=== PATIENT | female | born 1955 | race Hispanic/Latino ===

== ENCOUNTER 2018-04-14 16:15 | Emergency (ER) | payer OTHER ==
[~2018-04-14] VITALS: Ht 167.6 cm; Wt 103.4 kg
--- OUTSIDE RECORDS SUMMARY | 2018-04-14 16:18 | XMS REPORT ---
Author Author [facility] Address Unknown Phone Unavailable Care Team Providers Care Resp Therapist Name Role Phone AYESHA MARIE Unavailable Unavailable Problems This patient has no known problems. Allergies, Adverse Reactions, Alerts This patient has no known allergies or adverse reactions. Medications This patient has no known medications. Results Test Description Test Time Test Comments Text Results Atomic Results Result Comments CT ABDOMEN WOW [place] [id number] Patient Name: CALVIN LILLY MR #: [id number] : 1955 Age/Sex: 61/F Req #: [id number] Adm Physician: Ordered by: AYESHA MARIE MD Report #: [id number] Location: CT Room/Bed: Procedure: [id number] CT/CT ABDOMEN WOW Exam Date: 11/29/16 Exam Time: 1805 REPORT STATUS: Signed PROCEDURE: CT ABDOMEN WITH AND WITHOUT CONTRAST TECHNIQUE: The abdomen was scanned utilizing a multidetector helical scanner from the diaphragm to the iliac crest before and after the IV administration of 100 cc of Isovue 370 and the oral administration of water. Coronal and sagittal multiplanar reformations were obtained. COMPARISON: None available. Report of CT abdomen with contrast performed at outside institution 02/15/2016 was reviewed. INDICATIONS: LIVER MASS, KIDNEY BENIGN TUMOR FINDINGS: LOWER THORAX: Distal portion of pacemaker wire is noted in the right atrium and right ventricle. Lung bases are grossly clear. HEPATOBILIARY: Normal hepatic size and contour. There is likely borderline to mild fatty infiltration. 3.3 x 3.0 x 3.2 cm to relatively well-circumscribed, slightly lobulated hypodense lesion with imperceptible wall in hepatic segment IVB, adjacent to the abimbola hepatis (series 3, image 122). This lesion measures approximately 33 HU on precontrast exam, and shows no significant enhancement on postcontrast images (34, 39 and 32 HU on arterial, venous and delayed phases, respectively). No other focal hepatic lesions. No biliary ductal dilation. Gallbladder is decompressed, but grossly unremarkable. SPLEEN: No splenomegaly. PANCREAS: No focal masses or ductal dilatation. ADRENALS: No adrenal nodules. KIDNEYS: Symmetrical renal enhancement. Bilateral extrarenal pelves. No hydronephrosis or hydroureter or evidence of obstruction. 0.8 x 1.0 x 0.7 cm hyperdense lesion in the lateral inferior pole of the right kidney (56 HU),, which shows enhancement on postcontrast images (90, 83, and 56 HU, on arterial, venous and delayed phases respectively). 3-4 mm hypodense lesions in the inferior pole of the right kidney (series 5, images 38 and 43) which are too small to characterize. 7- 8mm hypodense lesion in the superior pole of the left kidney (series 5, image 23) which is too small to characterize. No solid enhancing masses. No stones PERITONEUM / RETROPERITONEUM: No free air or fluid. LYMPH NODES: No lymphadenopathy. VESSELS: Atherosclerotic calcification of the abdominal aorta GI TRACT: Visualized bowel shows no dilation or obstruction. Scattered diverticula in the descending colon, without diverticulitis. BONES AND SOFT TISSUES: No acute bony abnormalities. Mild degenerative changes in the lumbar spine. IMPRESSION: 1. 3.3 cm, slightly lobulated lesion in hepatic segment IVB, likely representing a mildly complex/proteinaceous cyst. No post contrast-enhancement is identified. 2. 1.0 cm hyperdense lesion in the lateral inferior pole of the right kidney, likely secondary to internal proteinaceous or hemorrhagic component, which remains indeterminate. Given its small size and mostly intracortical location, pseudo-enhancement is a consideration, however, if there is true enhancement, a hemorrhagic RCC is a diagnostic possibility. This may be further assessed with contrast-enhanced abdominal MRI with renal mass protocol. 3. Borderline to mild hepatic steatosis. Jose Pedersen M.D. Dictated by: Jose Pedersen M.D. on 11/29/2016 at 18:56 Electronically approved by: Jose Pedersen M.D. on 11/29/2016 at 18:56 Dictated By: JOSE PEDERSEN MD 55 Transcribed By: ADIEL on 11/29/161855 COPY TO: AYESHA MARIE MD
--- OUTSIDE RECORDS SUMMARY | 2018-04-14 16:18 | XMS REPORT | Continuity of Care Document ---
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 08/25/2016 [facility] SOBOE (<span ID="[id number]">Confirmed</span>) Active Problem 08/25/2016 [facility] Acid reflux Active Problem 08/25/2016 [facility] Hypertension Active Problem 08/25/2016 [facility] Poor peripheral circulation<sup>1</sup> Active Problem 08/25/2016 lower extremitites [facility] Sleep apnea Active Problem 08/25/2016 [facility] Medications Medication Details Route Status Patient Instructions Ordering Provider Order Date Source Minocycline 100 mg, 2 cap, Route: PO, Drug form: CAP, Q12H, Dosing Weight 100.455, kg, Start date: 08/22/16 9:00:00 CDT, Duration: 7 day, Stop date: 08/28/16 21:00:00 CDTNotes: (Same as:Minocin) No milk/antacids/iron. Inactive 08/22/2016 [facility] Coenzyme Q10 100 mg, Route: PO, Drug form: CAP, Daily, Dosing Weight 100.455, kg, Start date: 08/22/16 9:00:00 CDT, Duration: 30 day, Stop date: 09/20/16 9:00:00 CDT Inactive 08/22/2016 [facility] Chlorthalidone 50 MG Oral Tablet 50 mg, 2 tab, Route: PO, Drug form: TAB, Daily, Dosing Weight 100.455, kg, Start date: 08/22/16 9:00:00 CDT, Duration: 30 day, Stop date: 09/20/16 9:00:00 CDTNotes: Non-Formulary Drug (Same As: [place]) Inactive 08/22/2016 [facility] RN: Pls bring pt own coenzyme to pharm to get labeled. RN: Pls bring pt own coenzyme to pharm to get labeled., Reminder., Drug form: MISC, Route: MISCYRIS, 08/22/16 0:00:00 CDT, Duration: 30 day, Stop date: 09/20/16 16:00:00 CDT Inactive 08/22/2016 [facility] rosuvastatin 10 mg, 2 tab, Route: PO, Drug form: TAB, Bedtime, Dosing Weight 100.455, kg, Start date: 08/21/16 21:00:00 CDT, Duration: 30 day, Stop date: 09/19/16 21:00:00 CDTNotes: Same as Crestor No Longer Active 08/22/2016 [facility] Furosemide 40 MG Oral Tablet [Lasix] 40 mg, 1 tab, Route: PO, Drug form: TAB, qWeek, Dosing Weight 100.455, kg, Start date: 08/21/16 21:00:00 CDT, Duration: 30 day, Stop date: 09/18/16 9:00:00 CDTNotes: (Same as: Lasix) May cause GI upset. Give with food or milk. No Longer Active 08/22/2016 [facility] Amlodipine 2.5 mg, 1 tab, Route: PO, Drug form: TAB, Bedtime, Dosing Weight 100.455, kg, Start date: 08/21/16 21:00:00 CDT, Duration: 30 day, Stop date: 09/19/16 21:00:00 CDTNotes: (Same as: Norvasc) No Longer Active 08/22/2016 [facility] famotidine 20 mg, 1 tab, Route: PO, Drug form: TAB, Q12H, PRN GI Upset, Start date: 08/21/16 20:57:00 CDT, Duration: 30 day, Stop date: 09/20/16 20:56:00 CDTNotes: (Same as: Pepcid) No Longer Active 08/22/2016 [facility] Ranitidine 150 MG Oral Tablet [Zantac] 150 mg, 1 tab, Route: PO, Drug form: TAB, PRN, Dosing Weight 100.455, kg, PRN GI Upset, Start date: 08/21/16 20:29:00 CDT, Duration: 30 day, Stop date: 09/20/16 20:28:00 CDT Inactive 08/22/2016 [facility] acetaminophen-codeine #3 1 tab, Route: PO, Drug Form: TAB, Dosing Weight 100.455, kg, Q4H, PRN Pain Score 4-6, Start date: 08/21/16 10:46:00 CDT, Duration: 30 day, Stop date: 09/20/16 10:45:00 CDTNotes: Do not exceed 4gm/day of acetaminophen. (Same as: Tylenol with Codeine # 3) No Longer Active 08/21/2016 [facility] Chlorthalidone 50 MG Oral Tablet 50 mg=1 tab, PO, Daily, # 30 tab, 0 Refill(s) Active 08/21/2016 [facility] Furosemide 40 MG Oral Tablet [Lasix] 40 mg=1 tab, PO, qWeek, 0 Refill(s) Active 08/21/2016 [facility] Coenzyme Q10 100 mg, Route: PO, Drug form: CAP, Daily, Dosing Weight 102.273, kg, Start date: 08/06/16 9:00:00 CDT, Duration: 30 day, Stop date: 09/04/16 9:00:00 CDT Inactive 08/06/2016 [facility] aspirin 81 mg tablet, enteric coated 81 mg, 1 tab, Route: PO, Drug form: ECTAB, Daily, Dosing Weight 102.273, kg, Start date: 08/06/16 9:00:00 CDT, Duration: 30 day, Stop date: 09/04/16 9:00:00 CDT Inactive 08/06/2016 [facility] rosuvastatin 10 mg, Route: PO, Drug form: TAB, Bedtime, Dosing Weight 102.273, kg, Start date: 08/05/16 21:00:00 CDT, Duration: 30 day, Stop date: 09/03/16 21:00:00 CDT No Longer Active 08/06/2016 [facility] Atenolol 50 MG / Chlorthalidone 25 MG Oral Tablet 1 tab, Route: PO, Drug Form: TAB, Dosing Weight 102.273, kg, Bedtime, Start date: 08/05/16 21:00:00 CDT, Duration: 30 day, Stop date: 09/03/16 21:00:00 CDT No Longer Active 08/06/2016 [facility] Amlodipine 2.5 mg, Route: PO, Drug form: TAB, Bedtime, Dosing Weight 102.273, kg, Start date: 08/05/16 21:00:00 CDT, Duration: 30 day, Stop date: 09/03/16 21:00:00 CDT No Longer Active 08/06/2016 [facility] Sodium Chloride 0.154 MEQ/ML Injectable Solution 750 mL, Rate: 200 ml/hr, Infuse over: 3.8 hr, Route: IV, Dosing Weight 102.273 kg, Total Volume: 750, Start date: 08/05/16 9:17:00 CDT, Duration: 10 hr, Stop date: 08/05/16 19:16:00 CDT No Longer Active 08/05/2016 [facility] Ranitidine 150 MG Oral Tablet [Zantac] 150 mg, 1 tab, Route: PO, Drug form: TAB, PRN, Dosing Weight 102.273, kg, PRN Heartburn, Start date: 08/05/16 9:14:00 CDT, Duration: 30 day, Stop date: 09/04/16 9:13:00 CDT No Longer Active 08/05/2016 [facility] amLODIPine 2.5 mg oral tablet 2.5 mg=1 tab, PO, Bedtime, # 90 tab, 0 Refill(s) Active 08/02/2016 [facility] Ranitidine 150 MG Oral Tablet [Zantac] 150 mg=1 tab, PO, PRN, 0 Refill(s) Active 08/02/2016 [facility] Coenzyme Q10 100 mg oral capsule 100 mg=1 cap, PO, Daily, # 30 cap, 0 Refill(s) Active 08/02/2016 [facility] Atenolol 50 MG / Chlorthalidone 25 MG Oral Tablet 1 tab, PO, Bedtime, # 30 tab, 0 Refill(s) Active 08/02/2016 [facility] aspirin 81 mg tablet, enteric coated 81 mg=1 tab, PO, Daily, # 90 tab, 3 Refill(s) Active 08/02/2016 [facility] rosuvastatin 10 mg oral tablet 10 mg=1 tab, PO, Bedtime, # 30 tab, 0 Refill(s) Active 08/02/2016 [facility] Allergies, Adverse Reactions, Alerts Substance Category Reaction Severity Reaction type Status Date Reported Comments Source Immunizations Immunization Date Given Site Status Last Updated Comments Source Results Order Name Results Value Reference Range Date Interpretation Comments Source Chest 1 v for Placement DX Chest 1 v for Placement DX CHEST, ONE VIEW HISTORY: Pacemaker placement. COMPARISON: 09/22/2010. FINDINGS: Since the prior exam, a dual-lead left chest wall transvenous cardiac pacemaker has been placed with leads terminating in the right atrium and right ventricle. No pneumothorax is seen. Lungs are clear. No pleural effusion is evident. Heart size within normal limits. Osseous structures unremarkable. SL: [id number] 08/21/2016 - - Read by: Darrel Pettit MD Dictated Date/time: 08/21/16 14:04 Electronically Signed by: Darrel Pettit MD 08/21/16 14:05 FINAL REPORT [facility] CHEM PANEL eGFR 76 mL/min/1.73m2 08/20/2016 Result Comment: The eGFR is calculated using the CKD-EPI formula. In most young, healthy individuals the eGFR will be >90 mL/min/1.73m2. The eGFR declines with age. An eGFR of 60-89 may be normal in some populations, particularly the elderly, for whom the CKD-EPI formula has not been extensively validated. Use of the eGFR is not recommended in the following populations: Individuals with unstable creatinine concentrations, including patients and those with serious co-morbid conditions. Patients with extremes in muscle mass or diet. The data above are obtained from the National Kidney Disease Education Program (NKDEP) which additionally recommends that when the eGFR is used in patients with extremes of body mass index for purposes of drug dosing, the eGFR should be multiplied by the estimated BMI. [facility] CHEM PANEL Chloride Lvl 108 meq/L 95 - 109 08/20/2016 [facility] CHEM PANEL Calcium Lvl 9.2 mg/dL 8.5 - 10.5 08/20/2016 [facility] CHEM PANEL CO2 28 meq/L 24 - 32 08/20/2016 [facility] CHEM PANEL Sodium Lvl 143 meq/L 135 - 145 08/20/2016 [facility] CHEM PANEL Potassium Lvl 4.2 meq/L 3.5 - 5.1 08/20/2016 [facility] CHEM PANEL BUN 12 mg/dL 7 - 22 08/20/2016 [facility] CHEM PANEL Creatinine Lvl 0.84 mg/dL 0.50 - 1.40 08/20/2016 [facility] CHEM PANEL Glucose Lvl 84 mg/dL 70 - 99 08/20/2016 [facility] CHEM PANEL AGAP 11.2 meq/L 10.0 - 20.0 08/20/2016 [facility] HEMATOLOGY Hct 36.7 % 36.0 - 48.0 08/20/2016 [facility] [place] MCV 88.3 fL 80.0 - 98.0 08/20/2016 [facility] [place] MCH 30.7 pg 27.0 - 31.0 08/20/2016 [facility] [place] MCHC 34.7 g/dL 32.0 - 36.0 08/20/2016 [facility] [place] RDW 13.5 % 11.5 - 14.5 08/20/2016 [facility] [place] Platelet 230 K/CMM 133 - 450 08/20/2016 [facility] [place] RBC 4.15 M/CMM 4.20 - 5.40 08/20/2016 [facility] [place] Hgb 12.7 g/dL 12.0 - 16.0 08/20/2016 [facility] [place] WBC 8.0 K/CMM 3.7 - 10.4 08/20/2016 [facility] [place] MPV 7.6 fL 7.4 - 10.4 08/20/2016 [facility] [place] PT 14.2 s 12.0 - 14.7 08/20/2016 [facility] [place] PTT 31.0 s 22.9 - 35.8 08/20/2016 [facility] [place] INR 1.08 0.85 - 1.17 08/20/2016 [facility] [place] Basophils 0.8 % 0.0 - 1.0 08/20/2016 [facility] [place] Eosinophils 1.5 % 0.0 - 4.0 08/20/2016 [facility] [place] Monocytes # 0.4 K/CMM 0.0 - 0.8 08/20/2016 [facility] [place] Segs-Bands # 4.9 K/CMM 1.5 - 8.1 08/20/2016 [facility] [place] Monocytes 5.4 % 2.0 - 12.0 08/20/2016 [facility] [place] Lymphocytes 30.6 % 20.0 - 40.0 08/20/2016 [facility] [place] Lymphocytes # 2.4 K/CMM 1.0 - 5.5 08/20/2016 [facility] [place] Basophils # 0.1 K/CMM 0.0 - 0.2 08/20/2016 [facility] HEMATOLOGY Eosinophils # 0.1 K/CMM 0.0 - 0.5 08/20/2016 [facility] HEMATOLOGY Segs 61.7 % 45.0 - 75.0 08/20/2016 [facility] CHEM PANEL A/G Ratio 1.0 0.7 - 1.6 08/02/2016 [facility] CHEM PANEL B/C Ratio 17 6 - 25 08/02/2016 [facility] CHEM PANEL Globulin 3.7 g/dL 2.7 - 4.2 08/02/2016 [facility] CHEM PANEL AGAP 10.3 meq/L 10.0 - 20.0 08/02/2016 [facility] CHEM PANEL Sodium Lvl 142 meq/L 135 - 145 08/02/2016 [facility] CHEM PANEL Potassium Lvl 3.3 meq/L 3.5 - 5.1 08/02/2016 [facility] CHEM PANEL Chloride Lvl 102 meq/L 95 - 109 08/02/2016 [facility] CHEM PANEL BUN 15 mg/dL 7 - 22 08/02/2016 [facility] CHEM PANEL Total Protein 7.5 g/dL 6.4 - 8.4 08/02/2016 [facility] CHEM PANEL Albumin Lvl 3.8 g/dL 3.5 - 5.0 08/02/2016 [facility] CHEM PANEL CO2 33 meq/L 24 - 32 08/02/2016 [facility] CHEM PANEL Creatinine Lvl 0.87 mg/dL 0.50 - 1.40 08/02/2016 [facility] CHEM PANEL Alk Phos 50 unit/L 39 - 136 08/02/2016 [facility] CHEM PANEL AST 18 unit/L 0 - 37 08/02/2016 [facility] CHEM PANEL Bili Total 0.7 mg/dL 0.2 - 1.3 08/02/2016 [facility] CHEM PANEL ALT 27 unit/L 0 - 65 08/02/2016 [facility] CHEM PANEL Calcium Lvl 8.9 mg/dL 8.5 - 10.5 08/02/2016 [facility] CHEM PANEL eGFR 73 mL/min/1.73m2 08/02/2016 Result Comment: The eGFR is calculated using the CKD-EPI formula. In most young, healthy individuals the eGFR will be >90 mL/min/1.73m2. The eGFR declines with age. An eGFR of 60-89 may be normal in some populations, particularly the elderly, for whom the CKD-EPI formula has not been extensively validated. Use of the eGFR is not recommended in the following populations: Individuals with unstable creatinine concentrations, including patients and those with serious co-morbid conditions. Patients with extremes in muscle mass or diet. The data above are obtained from the National Kidney Disease Education Program (NKDEP) which additionally recommends that when the eGFR is used in patients with extremes of body mass index for purposes of drug dosing, the eGFR should be multiplied by the estimated BMI. [facility] CHEM PANEL Glucose Lvl 88 mg/dL 70 - 99 08/02/2016 [facility] HEMATOLOGY Eosinophils 1.7 % 0.0 - 4.0 08/02/2016 [facility] HEMATOLOGY Monocytes 7.0 % 2.0 - 12.0 08/02/2016 [facility] [place] Basophils # 0.1 K/CMM 0.0 - 0.2 08/02/2016 [facility] [place] Lymphocytes 32.3 % 20.0 - 40.0 08/02/2016 [facility] HEMATOLOGY Segs 58.1 % 45.0 - 75.0 08/02/2016 [facility] [place] Basophils 0.9 % 0.0 - 1.0 08/02/2016 [facility] [place] Eosinophils # 0.1 K/CMM 0.0 - 0.5 08/02/2016 [facility] [place] Monocytes # 0.4 K/CMM 0.0 - 0.8 08/02/2016 [facility] [place] Lymphocytes # 2.1 K/CMM 1.0 - 5.5 08/02/2016 [facility] [place] Segs-Bands # 3.7 K/CMM 1.5 - 8.1 08/02/2016 [facility] [place] PTT 30.8 s 22.9 - 35.8 08/02/2016 [facility] [place] PT 13.8 s 12.0 - 14.7 08/02/2016 [facility] [place] INR 1.04 0.85 - 1.17 08/02/2016 [facility] [place] RBC 4.24 M/CMM 4.20 - 5.40 08/02/2016 [facility] [place] WBC 6.4 K/CMM 3.7 - 10.4 08/02/2016 [facility] [place] Platelet 229 K/CMM 133 - 450 08/02/2016 [facility] [place] RDW 13.1 % 11.5 - 14.5 08/02/2016 [facility] [place] MCH 30.8 pg 27.0 - 31.0 08/02/2016 [facility] [place] MCV 87.0 fL 80.0 - 98.0 08/02/2016 [facility] [place] MPV 8.1 fL 7.4 - 10.4 08/02/2016 [facility] [place] Hct 36.9 % 36.0 - 48.0 08/02/2016 [facility] [place] MCHC 35.4 g/dL 32.0 - 36.0 08/02/2016 [facility] [place] Hgb 13.1 g/dL 12.0 - 16.0 08/02/2016 [facility] CHD Risk 4.72 3.90 - 5.80 08/02/2016 [facility] LIPIDS LDL (Calculated) 129 mg/dL <=99 mg/dL 08/02/2016 [facility] LIPIDS VLDL 31 08/02/2016 [facility] LIPIDS Trig 154 mg/dL <=149 mg/dL 08/02/2016 [facility] LIPIDS Chol 203 mg/dL <=199 mg/dL 08/02/2016 [facility] HDL 43 mg/dL >=61 mg/dL 08/02/2016 [facility] Abdomen complete US Abdomen complete US Clinical Indication: upper abdominal pain; Comparison: None TECHNIQUE: Grayscale and limited color sonographic evaluation of the abdomen was performed with standard technique. FINDINGS: LIVER: The visualized liver shows normal contour, size, and morphology with normal parenchymal echo texture. A 3.2 x 4 x 2.9 cm cyst is noted. BILE DUCTS: The intrahepatic and extrahepatic bile ducts are not dilated with the common bile duct measuring 3 mm. The distal common bile duct is not well seen. GALLBLADDER: Radiopaque stone and sludge are identified. There is no pericholecystic fluid or wall thickening. PANCREAS: The visualized pancreas appears unremarkable.. SPLEEN: The spleen is unremarkable and measures 10.3 cm. KIDNEY: The right kidney measures 11.2 cm. A 7 mm hyperechoic structure in the inferior pole of the right kidney, without posterior shadowing. The left kidney measures 11.3 cm. There is normal renal contour and morphology, with normal parenchymal echotexture. There is no hydronephrosis. AORTA AND INFERIOR VENA CAVA: Visualized portions appear unremarkable. ASCITES: There is no right abdominal ascites. IMPRESSION: 1. Cholelithiasis without evidence of acute cholecystitis. 2. A 7 mm hyperechoic structure in the inferior pole of the right kidney, may be a nonshadowing calculus or small angiomyolipoma. SL: [id number] 12/04/2015 - - Read by: Chaz Gregg MD Dictated Date/time: 12/04/15 15:24 Electronically Signed by: Chaz Gregg MD 12/04/15 15:36 FINAL REPORT [facility] Vital Signs Vital Sign Value Date Comments Source Respitory Rate 18 08/22/2016 [facility] Heart Rate 75 08/22/2016 [facility] Systolic (mm Hg) 115 08/22/2016 [facility] Diastolic (mm Hg) 76 08/22/2016 [facility] Temperature Oral (F) 99.1 F 08/22/2016 [facility] Systolic (mm Hg) 127 08/22/2016 [facility] Diastolic (mm Hg) 80 08/22/2016 [facility] Respitory Rate 18 08/22/2016 [facility] Heart Rate 66 08/22/2016 [facility] Temperature Oral (F) 98.4 F 08/22/2016 [facility] Respitory Rate 18 08/22/2016 [facility] Heart Rate 73 08/22/2016 [facility] Systolic (mm Hg) 106 08/22/2016 [facility] Diastolic (mm Hg) 69 08/22/2016 [facility] Temperature Oral (F) 98.3 F 08/22/2016 [facility] Height 167.64 cm 08/20/2016 [facility] Weight 100.455 08/20/2016 [facility] BMI Calculated 35.75 08/20/2016 [facility] Systolic (mm Hg) 114 08/02/2016 [facility] Diastolic (mm Hg) 76 08/02/2016 [facility] Respitory Rate 20 08/02/2016 [facility] Heart Rate 57 08/02/2016 [facility] Temperature Oral (F) 98.1 F 08/02/2016 [facility] Weight 102.273 08/02/2016 [facility] Height 167.64 cm 08/02/2016 [facility] BMI Calculated 36.39 08/02/2016 [facility] Encounters Location Location Details Encounter Type Encounter Number Reason For Visit Attending Provider ADM Date DC Date Status Source [facility] Outpatient [id number] Luis A Underwood 12/04/2015 12/05/2015 [facility] Bedded Outpatient [id number] Raymon Cook 08/05/2016 08/05/2016 [facility] Bedded Outpatient [id number] Kaz Andrade 08/21/2016 08/22/2016 [facility] Procedures Procedure Code Date Perfomer Comments Source Angiogram [id number] 08/06/2016 [facility] section [id number] [facility] Colonoscopy [id number] [facility] Esophagogastroduodenoscopy [id number] [facility]
--- OUTSIDE RECORDS SUMMARY | 2018-04-14 16:18 | XMS REPORT | Summary of Care ---
Author Author [facility] Organization [facility] Address Unknown Phone Unavailable Encounter TRUNG [place](SABRA) [id number] Date(s): 08/05/16 - 08/05/16 [facility] [address] [place] [address]- [phone] Discharge Disposition: Home or Self Care Attending Physician: Raymon Garcia MD Referring Physician: Raymon Garcia MD Vital Signs Most recent to 1 oldest [Reference Range]: Height 167.64 cm (08/02/16 8:57 AM) Temperature Oral 98.1 DegF [96.4-99.1 DegF] (08/02/16 9:30 AM) Blood Pressure 114/76 mmHg [90-140/60-90 mmHg] (08/02/16 9:30 AM) Respiratory Rate 20 BRMIN [14-20 BRMIN] (08/02/16 9:30 AM) Peripheral Pulse 57 bpm Rate [60-100 bpm] *LOW* (08/02/16 9:30 AM) Weight 102.273 kg (08/02/16 8:57 AM) Body Mass Index 36.39 m2 (08/02/16 8:57 AM) Problem List Condition Effective Dates Status Health Status Informant Abnormal Active cardiovascular stress test(Confirmed) 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) SOBOE (shortness of Active breath on exertion)(Confirmed) Acid Active reflux(Confirmed) Poor peripheral Active circulation(Confirme d)1 1lower extremitites Allergies, Adverse Reactions, Alerts Substance Reaction Severity Status NKDA Active Medications amLODIPine 2.5 mg, Route: PO, Drug form: TAB, Bedtime, Dosing Weight 102.273, kg, Start rachel e: 08/05/16 21:00:00 CDT, Duration: 30 day, Stop date: 09/03/16 21:00:00 CDT Start Date: 08/05/16 Stop Date: 08/06/16 Status: Discontinued amLODIPine 2.5 mg oral tablet 2.5 mg=1 tab, PO, Bedtime, # 90 tab, 0 Refill(s) Start Date: 08/02/16 Status: Ordered aspirin 81 mg tablet, enteric coated 81 mg, 1 tab, Route: PO, Drug form: ECTAB, Daily, Dosing Weight 102.273, kg, Sta rt date: 08/06/16 9:00:00 CDT, Duration: 30 day, Stop date: 09/04/16 9:00:00 CDT Start Date: 08/06/16 Stop Date: 08/06/16 Status: Canceled aspirin 81 mg tablet, enteric coated 81 mg=1 tab, PO, Daily, # 90 tab, 3 Refill(s) Start Date: 08/02/16 Status: Ordered atenolol-chlorthalidone 50 mg-25 mg oral tablet 1 tab, Route: PO, Drug Form: TAB, Dosing Weight 102.273, kg, Bedtime, Start date : 08/05/16 21:00:00 CDT, Duration: 30 day, Stop date: 09/03/16 21:00:00 CDT Start Date: 08/05/16 Stop Date: 08/06/16 Status: Discontinued atenolol-chlorthalidone 50 mg-25 mg oral tablet 1 tab, PO, Bedtime, # 30 tab, 0 Refill(s) Start Date: 08/02/16 Status: Ordered Coenzyme Q10 100 mg, Route: PO, Drug form: CAP, Daily, Dosing Weight 102.273, kg, Start date: 08/06/16 9:00:00 CDT, Duration: 30 day, Stop date: 09/04/16 9:00:00 CDT Start Date: 08/06/16 Stop Date: 08/06/16 Status: Canceled Coenzyme Q10 100 mg oral capsule 100 mg=1 cap, PO, Daily, # 30 cap, 0 Refill(s) Start Date: 08/02/16 Status: Ordered rosuvastatin 10 mg, Route: PO, Drug form: TAB, Bedtime, Dosing Weight 102.273, kg, Start date : 08/05/16 21:00:00 CDT, Duration: 30 day, Stop date: 09/03/16 21:00:00 CDT Start Date: 08/05/16 Stop Date: 08/06/16 Status: Discontinued rosuvastatin 10 mg oral tablet 10 mg=1 tab, PO, Bedtime, # 30 tab, 0 Refill(s) Start Date: 08/02/16 Status: Ordered Sodium Chloride 0.9% IV 750 mL 750 mL, Rate: 200 ml/hr, Infuse over: 3.8 hr, Route: IV, Dosing Weight 102.273 k g, Total Volume: 750, Start date: 08/05/16 9:17:00 CDT, Duration: 10 hr, Stop da te: 08/05/16 19:16:00 CDT Start Date: 08/05/16 Stop Date: 08/06/16 Status: Discontinued Zantac 150 oral tablet 150 mg, 1 tab, Route: PO, Drug form: TAB, PRN, Dosing Weight 102.273, kg, PRN He artburn, Start date: 08/05/16 9:14:00 CDT, Duration: 30 day, Stop date: 09/04/16 9:13:00 CDT Start Date: 08/05/16 Stop Date: 08/06/16 Status: Discontinued Zantac 150 oral tablet 150 mg=1 tab, PO, PRN, 0 Refill(s) Start Date: 08/02/16 Status: Ordered Results ELECTROLYTES Most recent to 1 oldest [Reference Range]: Sodium Lvl [135-145 142 mEq/L mEq/L] (08/02/16 9:04 AM) Potassium Lvl 3.3 mEq/L [3.5-5.1 mEq/L] *LOW* (08/02/16 9:04 AM) Chloride Lvl [95-109 102 mEq/L mEq/L] (08/02/16 9:04 AM) CO2 [24-32 mEq/L] 33 mEq/L *HI* (08/02/16 9:04 AM) AGAP [10.0-20.0 10.3 mEq/L mEq/L] (08/02/16 9:04 AM) CHEM PANEL Most recent to 1 oldest [Reference Range]: Creatinine Lvl 0.87 mg/dL [0.50-1.40 mg/dL] (08/02/16 9:04 AM) eGFR 73 mL/min/1.73m2 1 *NA* (08/02/16 9:04 AM) BUN [7-22 mg/dL] 15 mg/dL (08/02/16 9:04 AM) B/C Ratio [6-25] 17 (08/02/16 9:04 AM) Glucose Lvl [70-99 88 mg/dL mg/dL] (08/02/16 9:04 AM) Total Protein 7.5 g/dL [6.4-8.4 g/dL] (08/02/16 9:04 AM) Albumin Lvl [3.5-5.0 3.8 g/dL g/dL] (08/02/16 9:04 AM) Globulin [2.7-4.2 3.7 g/dL g/dL] (08/02/16 9:04 AM) A/G Ratio [0.7-1.6] 1.0 (08/02/16 9:04 AM) Calcium Lvl 8.9 mg/dL [8.5-10.5 mg/dL] (08/02/16 9:04 AM) ALT [0-65 unit/L] 27 unit/L (08/02/16 9:04 AM) AST [0-37 unit/L] 18 unit/L (08/02/16 9:04 AM) Alk Phos [39-136 50 unit/L unit/L] (08/02/16 9:04 AM) Bili Total [0.2-1.3 0.7 mg/dL mg/dL] (08/02/16 9:04 AM) 1Result Comment: The eGFR is calculated using the [...] from the National Kidney Disease Education Program ( NKDEP) which additionally recommends that when the eGFR is used in patients with extremes of body mass index for purposes of drug dosing, the eGFR should be mul tiplied by the estimated BMI. LIPIDS Most recent to 1 oldest [Reference Range]: CHD Risk [3.90-5.80] 4.72 (08/02/16 9:04 AM) Chol [<=199 mg/dL] 203 mg/dL *HI* (08/02/16 9:04 AM) Trig [<=149 mg/dL] 154 mg/dL *HI* (08/02/16:04 AM) HDL [>=61 mg/dL] 43 mg/dL *LOW* (08/02/16:04 AM) LDL (Calculated) 129 mg/dL [<=99 mg/dL] *HI* (08/02/16 9:04 AM) VLDL 31 *NA* (08/02/16 9:04 AM) HEMATOLOGY Most recent to 1 oldest [Reference Range]: WBC [3.7-10.4 K/CMM] 6.4 K/CMM (08/02/16 9:04 AM) RBC [4.20-5.40 4.24 M/CMM M/CMM] (08/02/16 9:04 AM) Hgb [12.0-16.0 g/dL] 13.1 g/dL (08/02/16 9:04 AM) Hct [36.0-48.0 %] 36.9 % (08/02/16 9:04 AM) MCV [80.0-98.0 fL] 87.0 fL (08/02/16 9:04 AM) MCH [27.0-31.0 pg] 30.8 pg (08/02/16 9:04 AM) MCHC [32.0-36.0 35.4 g/dL g/dL] (08/02/16 9:04 AM) RDW [11.5-14.5 %] 13.1 % (08/02/16 9:04 AM) Platelet [133-450 229 K/CMM K/CMM] (08/02/16 9:04 AM) MPV [7.4-10.4 fL] 8.1 fL (08/02/16 9:04 AM) Segs [45.0-75.0 %] 58.1 % (08/02/16 9:04 AM) Lymphocytes 32.3 % [20.0-40.0 %] (08/02/16 9:04 AM) Monocytes [2.0-12.0 7.0 % %] (08/02/16 9:04 AM) Eosinophils [0.0-4.0 1.7 % %] (08/02/16 9:04 AM) Basophils [0.0-1.0 0.9 % %] (08/02/16 9:04 AM) Segs-Bands # 3.7 K/CMM [1.5-8.1 K/CMM] (08/02/16 9:04 AM) Lymphocytes # 2.1 K/CMM [1.0-5.5 K/CMM] (08/02/16 9:04 AM) Monocytes # [0.0-0.8 0.4 K/CMM K/CMM] (08/02/16 9:04 AM) Eosinophils # 0.1 K/CMM [0.0-0.5 K/CMM] (08/02/16 9:04 AM) Basophils # [0.0-0.2 0.1 K/CMM K/CMM] (08/02/16 9:04 AM) PT [12.0-14.7 13.8 seconds seconds] (08/02/16 9:04 AM) INR [0.85-1.17] 1.04 (08/02/16 9:04 AM) PTT [22.9-35.8 30.8 seconds seconds] (08/02/16 9:04 AM) Immunizations No data available for this section Procedures Procedure Date Related Diagnosis Body Site section Colonoscopy Esophagogastroduodenoscopy Social History Social History Type Response Alcohol Never Smoking Status Never smoker; Exposure to Tobacco Smoke None; Cigarette Smoking Last 365 Days No; Reg Smoking Cessation Counseling No Assessment and Plan No data available for this section
--- OUTSIDE RECORDS SUMMARY | 2018-04-14 16:18 | XMS REPORT | Summary of Care ---
Author Author [facility] Organization [facility] Address Unknown Phone Unavailable Encounter TRUNG [place](SABRA) [id number] Date(s): 08/21/16 - 08/22/16 [facility] [address] [place] [address] [phone] Discharge Disposition: Home or Self Care Attending Physician: Kaz Do MD Referring Physician: Kaz Do MD Vital Signs 1 2 3 Most recent to oldest [Reference Range]: 167.64 cm (08/20/16 1:27 PM) Height 99.1 DegF (08/22/16 12:23 PM) 98.4 DegF (08/22/16 7:30 AM) 98.3 DegF (08/22/16 4:00 AM) Temperature Oral [96.4-99.1 DegF] 115/76 mmHg (08/22/16 12:23 PM) 127/80 mmHg (08/22/16 7:30 AM) 106/69 mmHg (08/22/16 4:00 AM) Blood Pressure [90-140/60-90 mmHg] 18 BRMIN (08/22/16 12:23 PM) 18 BRMIN (08/22/16 7:30 AM) 18 BRMIN (08/22/16 4:00 AM) Respiratory Rate [14-20 BRMIN] 75 bpm (08/22/16 12:23 PM) 66 bpm (08/22/16 7:30 AM) 73 bpm (08/22/16 4:00 AM) Peripheral Pulse Rate [60-100 bpm] 100.455 kg (08/20/16 1:27 PM) Weight 35.75 m2 (08/20/16 1:27 PM) Body Mass Index Problem List Condition Effective Dates Status Health Status Informant Abnormal Active cardiovascular stress test(Confirmed) 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 (Same as: Tylenol with Codeine # 3) Start Date: 08/21/16 Stop Date: 08/22/16 Status: Discontinued amLODIPine 2.5 mg, 1 tab, Route: PO, Drug form: TAB, Bedtime, Dosing Weight 100.455, kg, St art date: 08/21/16 21:00:00 CDT, Duration: 30 day, Stop date: 09/19/16 21:00:00 CDT Notes: (Same as: Norvasc) Start Date: 08/21/16 Stop Date: 08/22/16 Status: Discontinued chlorthalidone 50 mg oral tablet 50 mg=1 tab, PO, Daily, # 30 tab, 0 Refill(s) Start Date: 08/21/16 Status: Ordered chlorthalidone 50 mg oral tablet 50 mg, 2 tab, Route: PO, Drug form: TAB, Daily, Dosing Weight 100.455, kg, Start date: 08/22/16 9:00:00 CDT, Duration: 30 day, Stop date: 09/20/16 9:00:00 CDT Notes: Non-Formulary Drug (Same As: [place]) Start Date: 08/22/16 Stop Date: 08/22/16 Status: Discontinued Coenzyme Q10 100 mg, Route: PO, Drug form: CAP, Daily, Dosing Weight 100.455, kg, Start date: 08/22/16 9:00:00 CDT, Duration: 30 day, Stop date: 09/20/16 9:00:00 CDT Start Date: 08/22/16 Stop Date: 08/22/16 Status: Discontinued famotidine 20 mg, 1 tab, Route: PO, Drug form: TAB, Q12H, PRN GI Upset, Start date: 7 20:57:00 CDT, Duration: 30 day, Stop date: 09/20/16 20:56:00 CDT Notes: (Same as: Pepcid) Start Date: 08/21/16 Stop Date: 08/22/16 Status: Discontinued Lasix 40 mg oral tablet 40 mg=1 tab, PO, qWeek, 0 Refill(s) Start Date: 08/21/16 Status: Ordered Lasix 40 mg oral tablet 40 mg, 1 tab, Route: PO, Drug form: TAB, qWeek, Dosing Weight 100.455, kg, Start date: 08/21/16 21:00:00 CDT, Duration: 30 day, Stop date: 09/18/16 9:00:00 CDT Notes: (Same as: Lasix) May cause GI upset. Give with food or milk. Start Date: 08/21/16 Stop Date: 08/22/16 Status: Discontinued minocycline 100 mg, 2 cap, Route: PO, Drug form: CAP, Q12H, Dosing Weight 100.455, kg, Start date: 08/22/16 9:00:00 CDT, Duration: 7 day, Stop date: 08/28/16 21:00:00 CDT Notes: (Same as:Minocin) No milk/antacids/iron. Start Date: 08/22/16 Stop Date: 08/22/16 Status: Discontinued RN: Pls bring pt own coenzyme to pharm to get labeled. RN: Pls bring pt own coenzyme to pharm to get labeled., Reminder., Drug form: IN SC, Route: MISC, QSHIFT, 08/22/16 0:00:00 CDT, Duration: 30 day, Stop date: 12/29 16:00:00 CDT Start Date: 08/22/16 Stop Date: 08/22/16 Status: Discontinued rosuvastatin 10 mg, 2 tab, Route: PO, Drug form: TAB, Bedtime, Dosing Weight 100.455, kg, Sta rt date: 08/21/16 21:00:00 CDT, Duration: 30 day, Stop date: 09/19/16 21:00:00 C DT Notes: Same as Crestor Start Date: 08/21/16 Stop Date: 08/22/16 Status: Discontinued Zantac 150 oral tablet 150 mg, 1 tab, Route: PO, Drug form: TAB, PRN, Dosing Weight 100.455, kg, PRN GI Upset, Start date: 08/21/16 20:29:00 CDT, Duration: 30 day, Stop date: 09/20/16 20:28:00 CDT Start Date: 08/21/16 Stop Date: 08/21/16 Status: Deleted Results ELECTROLYTES Most recent to 1 oldest [Reference Range]: Sodium Lvl [135-145 143 mEq/L mEq/L] (08/20/16 1:59 PM) Potassium Lvl 4.2 mEq/L [3.5-5.1 mEq/L] (08/20/16 1:59 PM) Chloride Lvl [95-109 108 mEq/L mEq/L] (08/20/16 1:59 PM) CO2 [24-32 mEq/L] 28 mEq/L (08/20/16 1:59 PM) AGAP [10.0-20.0 11.2 mEq/L mEq/L] (08/20/16 1:59 PM) CHEM PANEL Most recent to 1 oldest [Reference Range]: Creatinine Lvl 0.84 mg/dL [0.50-1.40 mg/dL] (08/20/16 1:59 PM) eGFR 76 mL/min/1.73m2 1 *NA* (08/20/16 1:59 PM) BUN [7-22 mg/dL] 12 mg/dL (08/20/16 1:59 PM) Glucose Lvl [70-99 84 mg/dL mg/dL] (08/20/16 1:59 PM) Calcium Lvl 9.2 mg/dL [8.5-10.5 mg/dL] (08/20/16 1:59 PM) 1Result Comment: The eGFR is calculated using [...] be mul tiplied by the estimated BMI. HEMATOLOGY Most recent to 1 oldest [Reference Range]: WBC [3.7-10.4 K/CMM] 8.0 K/CMM (08/20/16 1:59 PM) RBC [4.20-5.40 4.15 M/CMM M/CMM] *LOW* (08/20/16 1:59 PM) Hgb [12.0-16.0 g/dL] 12.7 g/dL (08/20/16 1:59 PM) Hct [36.0-48.0 %] 36.7 % (08/20/16 1:59 PM) MCV [80.0-98.0 fL] 88.3 fL (08/20/16 1:59 PM) MCH [27.0-31.0 pg] 30.7 pg (08/20/16 1:59 PM) MCHC [32.0-36.0 34.7 g/dL g/dL] (08/20/16 1:59 PM) RDW [11.5-14.5 %] 13.5 % (08/20/16 1:59 PM) Platelet [133-450 230 K/CMM K/CMM] (08/20/16 1:59 PM) MPV [7.4-10.4 fL] 7.6 fL (08/20/16 1:59 PM) Segs [45.0-75.0 %] 61.7 % (08/20/16 1:59 PM) Lymphocytes 30.6 % [20.0-40.0 %] (08/20/16 1:59 PM) Monocytes [2.0-12.0 5.4 % %] (08/20/16 1:59 PM) Eosinophils [0.0-4.0 1.5 % %] (08/20/16 1:59 PM) Basophils [0.0-1.0 0.8 % %] (08/20/16 1:59 PM) Segs-Bands # 4.9 K/CMM [1.5-8.1 K/CMM] (08/20/16 1:59 PM) Lymphocytes # 2.4 K/CMM [1.0-5.5 K/CMM] (08/20/16 1:59 PM) Monocytes # [0.0-0.8 0.4 K/CMM K/CMM] (08/20/16 1:59 PM) Eosinophils # 0.1 K/CMM [0.0-0.5 K/CMM] (08/20/16 1:59 PM) Basophils # [0.0-0.2 0.1 K/CMM K/CMM] (08/20/16 1:59 PM) PT [12.0-14.7 14.2 seconds seconds] (08/20/16 1:59 PM) INR [0.85-1.17] 1.08 (08/20/16 1:59 PM) PTT [22.9-35.8 31.0 seconds seconds] (08/20/16 1:59 PM) Immunizations No data available for this section Procedures Procedure Date Related Diagnosis Body Site Angiogram 08/06/16 section Colonoscopy Esophagogastroduodenoscopy Social History Social History Type Response Substance Abuse Use: None. Alcohol Never Smoking Status Former smoker; Exposure to Tobacco Smoke None; Cigarette Smoking Last 365 Days No; Reg Smoking Cessation Counseling No Assessment and Plan No data available for this section
--- OUTSIDE RECORDS SUMMARY | 2018-04-14 16:18 | XMS REPORT | Summary of Care ---
Author Author [facility] Organization [facility] Address Unknown Phone Unavailable Encounter HQ Encntr_alias(FIN) [id number] Date(s): 12/04/15 - 12/04/15 [facility] [address] [place] [address]- Discharge Disposition: Home or Self Care Attending Physician: Luis A Underwood MD Referring Physician: Luis A Underwood MD Vital Signs No data available for this section Problem List No data available for this section Allergies, Adverse Reactions, Alerts Substance Reaction Severity Status NKDA Active Medications No data available for this section Results No data available for this section Immunizations No data available for this section Procedures No data available for this section Social History No data available for this section Assessment and Plan No data available for this section
[2018-04-14] MEDS ORDERED: ONDANSETRON HCL INJ 2 MG/ML VIAL IV STA (17:18)
[2018-04-14] MEDS ORDERED: FAMOTIDINE 20 MG/2 ML VIAL IV STA (17:20)
[2018-04-14] MEDS ORDERED: SODIUM CHLORIDE 0.9% 1000ML 1,000 ML IV SCH (17:30)
[2018-04-14] MEDS ORDERED: MORPHINE SULFATE INJ 4 MG/ML INJ IV ONE (17:30)
--- NOTE | 2018-04-14 19:32 | Diagnostic Imaging Report ---
EXAM: CT Abdomen and Pelvis WITH contrast INDICATION: Abdominal Pain COMPARISON: CT Abdomen/Pelvis 11/29/16. TECHNIQUE: Abdomen and pelvis were scanned utilizing a multidetector helical scanner from the lung base to the pubic symphysis after administration of IV contrast. Coronal and sagittal reformations were obtained. Routine protocol was performed. Scan was performed when during portal venous phase. IV CONTRAST: 100 mL of Isovue 370 ORAL CONTRAST: Water COMPLICATIONS: None RADIATION DOSE: Total DLP: 778 mGy*cm CTDIvol has been reviewed. It is below the limits set by the Radiation Protocol Committee (RPC). FINDINGS: LINES and TUBES: None. LOWER THORAX: Small hiatal hernia. HEPATOBILIARY: There is a 3.1 cm hypodense lesion in the caudate lobe, previously characterized as mildly complex/proteinaceous cyst on CT from 11/29/16. No biliary ductal dilation. GALLBLADDER: No radio-opaque stones or sludge. No wall thickening. SPLEEN: No splenomegaly. PANCREAS: No focal masses or ductal dilatation. ADRENALS: No adrenal nodules KIDNEYS/URETERS: Kidneys enhance symmetrically. No evidence of solid mass. Indeterminate 1 cm partially hyperdense right inferior pole renal lesion is again seen. GI TRACT: No evidence of wall thickening or distension. Appendix is normal. Colonic diverticulosis without CT evidence of diverticulitis. PELVIC ORGANS/BLADDER: Unremarkable. LYMPH NODES: No lymphadenopathy. VESSELS: Moderate atherosclerotic calcifications in the abdominal aorta and branch vessels. PERITONEUM / RETROPERITONEUM: No free air or fluid. BONES AND SOFT TISSUES: Unremarkable. CONCLUSION: No acute findings in the abdomen or pelvis. Indeterminate 1 cm lesion in the inferior pole of the right kidney, further characterized on prior CT from 11/29/16. A contrast enhanced renal MRI may be considered for further evaluation per prior study dictation. Signed by: Dr. Ariella Landry MD on 04/14/2018 7:29 PM
== END 2018-04-14 20:35 | disposition home or self-care (01) ==
LOC: FSED 16:15
DX: R11.2 Nausea with vomiting, unspecified (principal); R10.819 Abdominal tenderness, unspecified site
CPT/HCPCS: 74177; 80053; 81003; 85025; 99284; J2405; J7030

== ENCOUNTER → 2018-05-04 | Outpatient (CLI) | payer OTHER ==
[~2018-05-04] MED LIST: SINCALIDE 3 MCG/VIAL INJ ONE
--- NOTE | 2018-05-04 11:07 | Diagnostic Imaging Report ---
Hepatobiliary Scan with Gallbladder Ejection Fraction Clinical information: 62 F with abdominal pain Technique: Following intravenous administration of 7 millicuries of Tc-99m mebrofenin, dynamic images of the abdomen in the anterior projection were obtained through 30 minutes. Sincalide (CCK analog) 2.2 micrograms was administered intravenously over 30 minutes with additional imaging for determination of gallbladder ejection fraction. Discussion: Perfusion of the liver is normal. Extraction of tracer by the liver parenchyma is normal. Tracer appears promptly within the biliary tract. The gallbladder begins to fill by 14 minutes post injection of tracer and fills adequately. Tracer is seen in the small bowel during the sincalide infusion. The gallbladder ejection fraction with sincalide is 10% (normal greater than 40%). Impression: 1. Filling of the gallbladder excludes acute cystic duct obstruction/acute cholecystitis. 2. The decreased gallbladder ejection fraction of 10% supports the clinical diagnosis of chronic cholecystitis/gallbladder dyskinesia. Signed by: Dr. Alejandra Burnette M.D. on 05/04/2018 11:04 AM
== END ==
LOC: NM 07:53
PROVIDERS: ATTEND Internal Medicine Gastroenterology
DX: K58.1 Irritable bowel syndrome with constipation (principal); R10.13 Epigastric pain; I10 Essential (primary) hypertension; E66.9 Obesity, unspecified; Z71.3 Dietary counseling and surveillance
CPT/HCPCS: 78227; A9537; J2805

== ENCOUNTER → 2018-05-29 | Outpatient (CLI) | payer OTHER ==
[~2018-05-29] MED LIST changes: +IOPAMIDOL 370 MG/ML 200 ML INFUS..BTL INJ ONE; -SINCALIDE 3 MCG/VIAL INJ ONE; +SODIUM CHLORIDE 0.9% 50ML 50 ML ONE
[2018-05-29 10:43] LABS: BLOOD UREA NITROGEN 10 mg/dL (7-26); BUN/CREATININE RATIO 12 (6-25); CREATININE, SERUM 0.84 mg/dL (0.57-1.11); EST GLOMERULAR FILTRATION RATE > 60 ML/MIN (60-)
--- NOTE | 2018-05-29 12:47 | Diagnostic Imaging Report ---
EXAM: CT Abdomen and Pelvis with and without contrast INDICATION: Follow-up right renal lesion. COMPARISON: CT Abdomen/Pelvis with and without contrast 11/29/16, CT abdomen/pelvis 04/14/2018. TECHNIQUE: Abdomen and pelvis were scanned utilizing a multidetector helical scanner from the lung base to the pubic symphysis after administration of IV contrast. Coronal and sagittal reformations were obtained. Renal mass protocol was performed. Scan was performed when during portal venous phase. IV CONTRAST: 100 mL of Isovue 370 ORAL CONTRAST: Water COMPLICATIONS: None RADIATION DOSE: Total DLP: 2329 mGy*cm CTDIvol has been reviewed. It is below the limits set by the Radiation Protocol Committee (RPC). Dose modulation, iterative reconstruction, and/or weight based adjustment of the mA/kV was utilized to reduce the radiation dose to as low as reasonably achievable. FINDINGS: LINES and TUBES: Partially seen pacemaker leads. LOWER THORAX: Small hiatal hernia. HEPATOBILIARY: Mild fatty liver. Stable 3.2 cm segment IVb lesion without significant enhancement, which may represent a complex/proteinaceous cyst, and unchanged from CT on 11/29/2016. No biliary ductal dilation. GALLBLADDER: No radio-opaque stones or sludge. No wall thickening. SPLEEN: No splenomegaly. PANCREAS: No focal masses or ductal dilatation. ADRENALS: No adrenal nodules KIDNEYS/URETERS: Kidneys enhance symmetrically. No evidence of solid mass. Again noted is a 1.0 cm hyperdense lesion (112 HU non-contrast) in the right inferior pole kidney. No significant enhancement is noted (arterial phase 29 HU, delayed phase 39 HU). The lesion is more hyperdense compared to CT on 11/29/2016. Additional bilateral subcentimeter renal hypodensities are too small to characterize, but likely represent cysts. GI TRACT: No evidence of wall thickening or distension. Appendix is normal. Colonic diverticulosis without CT evidence of diverticulitis. PELVIC ORGANS/BLADDER: Unremarkable. LYMPH NODES: No lymphadenopathy. VESSELS: Moderate atherosclerotic calcifications in the abdominal aorta and branch vessels. PERITONEUM / RETROPERITONEUM: No free air or fluid. BONES AND SOFT TISSUES: No acute bony abnormality. CONCLUSION: Findings consistent with hemorrhagic cyst within the right inferior pole kidney without evidence of enhancing component. No evidence of solid renal mass. Signed by: Dr. Ariella Landry MD on 05/29/2018 12:44 PM
== END ==
LOC: CT 09:42
PROVIDERS: ATTEND Urology
DX: N28.1 Cyst of kidney, acquired (principal)
CPT/HCPCS: 36415; 74178; 82565; 84520; Q9967

== ENCOUNTER → 2018-10-22 | Outpatient (CLI) | payer OTHER ==
--- NOTE | 2018-10-22 10:26 | Diagnostic Imaging Report ---
EXAM: Renal Ultrasound INDICATION: ^[id number] ^[id number] ^CYST OF KIDNEY COMPARISON: None TECHNIQUE: Transverse and longitudinal images of the kidneys and bladder were obtained. FINDINGS: Right Kidney: Length: 11.3 cm Appearance: Normal echogenicity. Collecting system: No hydronephrosis Stones: None Cyst/Mass: There is a simple cyst of the lower pole of the right kidney measuring 1.6 by was 0.9 x 1.5 cm. Left Kidney: Length: 11.7 cm Appearance: Normal echogenicity. Collecting system: No hydronephrosis Stones: None Cyst/Mass: There is a simple cyst of the upper pole of the left kidney measuring 1.5 x 1.3 x 1.3 cm. Bladder: The bladder measures 9.7 x 6.3 x 3.2 cm. No wall thickening or mass lesion. Bilateral ureteral jets visualized. Incidental note is made of increased echogenicity of the liver parenchyma. IMPRESSION: No hydronephrosis or renal calculi. Bilateral simple renal cysts as above. Hepatic steatosis. Signed by: Alexandrea Varghese MD on 10/22/2018 10:23 AM
== END ==
LOC: US 07:51
PROVIDERS: ATTEND Urology
DX: N28.1 Cyst of kidney, acquired (principal); D41.00 Neoplasm of uncertain behavior of unspecified kidney
CPT/HCPCS: 76770

== ENCOUNTER → 2018-11-02 | Outpatient (CLI) | payer OTHER ==
--- NOTE | 2018-11-17 16:11 | Diagnostic Imaging Report ---
#[id number] - [id number] #BILATERAL DIGITAL SCREENING MAMMOGRAM WITH CAD: 11/02/2018 CLINICAL: Routine screening. Comparison is made to exams dated: 11/19/2012 mammogram, 02/08/2011 mammogram and 07/10/2010 mammogram - [facility]. There are scattered fibroglandular elements in both breasts. Current study was also evaluated with a Computer Aided Detection (CAD) system. There are benign calcifications in both breasts. No significant masses, calcifications, or other findings are seen in either breast. There has been no significant interval change. IMPRESSION: BENIGN There is no mammographic evidence of malignancy. A 1 year screening mammogram is recommended. The patient will be notified by letter of the results. Sami amador/amrit:11/17/2018 08:44:24 Tube Draw Helper: Alejandra EAST)(Caroline), [facility] letter sent: Normal Exam Mammogram BI-RADS: 2 Benign
== END ==
LOC: MAMMO 09:30
PROVIDERS: ATTEND Obstetrics & Gynecology
DX: Z12.31 Encounter for screening mammogram for malignant neoplasm of breast (principal)
CPT/HCPCS: 77067

== ENCOUNTER → 2019-11-15 | Outpatient (CLI) | payer OTHER | LOC: MAMMO 08:40 | PROVIDERS: ATTEND Obstetrics & Gynecology | DX: Z12.31 Encounter for screening mammogram for malignant neoplasm of breast (principal) | CPT/HCPCS: 77067 ==

== ENCOUNTER → 2020-02-07 | Outpatient (CLI) | payer OTHER ==
--- NOTE | 2020-02-07 11:33 | Diagnostic Imaging Report ---
EXAM: Renal Ultrasound INDICATION: ^[id number] ^[id number] ^CYST OF KIDNEY COMPARISON: 10/22/2018 and 05/29/2018 TECHNIQUE: Transverse and longitudinal images of the kidneys and bladder were obtained. FINDINGS: Right Kidney: Length: 10.4 cm Appearance: Normal echogenicity. Collecting system: No hydronephrosis Stones: None Cyst/Mass: Simple cyst of the lower pole is noted measuring up to 1.5 cm. There is a stable hyperechoic lesion measuring up to 0.6 cm within the interpolar to lower pole of the right kidney without posterior shadowing. Finding correlates with a known hyperdense right inferior pole hemorrhagic cyst. Left Kidney: Length: 11.5 cm Appearance: Normal echogenicity. Collecting system: No hydronephrosis Stones: None Cyst/Mass: Simple cyst of the upper pole is noted measuring up to 1.9 cm. Bladder: Bladder is unremarkable with a prevoid volume of 136 cc. Lateral ureteral jets are visualized. Incidentally noted increased echogenicity of the liver is noted. IMPRESSION: 1. Stable bilateral simple cortical cyst. Stable hyperechoic hemorrhagic cyst at the inferior pole the right kidney. 2. Negative for hydronephrosis. 3. Incidentally noted hepatic steatosis. Signed by: Mal Chow MD on 02/07/2020 11:30 AM
== END ==
LOC: US 09:37
PROVIDERS: ATTEND Urology
DX: N28.1 Cyst of kidney, acquired (principal)
CPT/HCPCS: 76770

== ENCOUNTER 2021-05-04 10:12 | Emergency (ER) | payer OTHER ==
[~2021-05-04] VITALS: Ht 167.6 cm; Wt 103.4 kg
[2021-05-04] MEDS ORDERED: KETOROLAC TROMETHAMINE 30 MG/ML VIAL IV STA (10:21)
[2021-05-04] MEDS ORDERED: SODIUM CHLORIDE 0.9% 1000ML 1,000 ML IV STA (10:21)
[2021-05-04] MEDS ORDERED: DIATRIZOATE MEGL/DIATRIZOA SOD 30 ML BTL PO ONE (10:34)
[2021-05-04 10:48] LABS: BASOPHILS % 0.4 % (0.0-1.0); EOSINOPHILS # (AUTO) 0.1 (0.0-0.4); EOSINOPHILS % 1.2 % (0.0-6.0); HEMATOCRIT 40.2 % (34.2-44.1); HEMOGLOBIN 12.8 g/dL (12.0-16.0); LYMPHOCYTES # (AUTO) 1.9 (1.0-3.2); LYMPHOCYTES % 37.6 % (18.0-39.1); MEAN CORPUSCULAR HEMOGLOBIN 29.4 pg (28-32); MEAN CORPUSCULAR HGB CONC 31.8 g/dL (31-35); MEAN CORPUSCULAR VOLUME 92.4 fL (81-99); MONOCYTES # (AUTO) 0.4 (0.2-0.8); NEUTROPHILS # (AUTO) 2.7 (2.1-6.9); NEUTROPHILS % 52.6 % (38.7-80.0); PLATELET COUNT 228 x10e3/uL (140-360); RED BLOOD COUNT 4.35 x10e6/uL (3.6-5.1); RED CELL DISTRIBUTION WIDTH 12.4 % (11.7-14.4)
[2021-05-04 11:20] LABS: ALBUMIN 3.8 g/dL (3.5-5.0); ALBUMIN/GLOBULIN RATIO 1.1 (0.8-2.0); ANION GAP 14.4 mmol/L (8-16); CALCIUM 9.2 mg/dL (8.4-10.2); CREATININE, SERUM 0.83 mg/dL (0.57-1.11); POTASSIUM 3.4 mmol/L (3.5-5.1)
[2021-05-04] MEDS ORDERED: SODIUM CHLORIDE 0.9% 50ML 50 ML ONE (11:42)
[2021-05-04] MEDS ORDERED: IOPAMIDOL 370 MG/ML 200 ML INFUS..BTL INJ ONE (11:42)
[2021-05-04 12:10] LABS: CLARITY,URINE CLEAR (CLEAR); COLOR,URINE YELLOW (YELLOW); LEUKOCYTE ESTERASE ,URINE NEGATIVE (NEGATIVE); NITRITE,URINE NEGATIVE (NEGATIVE)
[2021-05-04 12:11] LABS: KETONES,URINE NEGATIVE (NEGATIVE); PROTEIN,URINE DIPSTICK NEGATIVE (NEGATIVE); URINE UROBILINOGEN 0.2 mg/dL (0.2 - 1)
[2021-05-04 12:24] LABS: WBC,URINE (MAN) 0-5 /HPF (0-5)
[2021-05-04 12:25] LABS: BACTERIA,URINE FEW /HPF; EPITHELIAL CELLS,URINE FEW /LPF
[2021-05-04] MEDS ORDERED: ONDANSETRON ODT4 MG PO (12:49)
[2021-05-04] MEDS ORDERED: DICYCLOMINE HCL10 MG PO (12:49)
[2021-05-04 13:45] VITALS: BP 136/84
== END 2021-05-04 13:47 | disposition home or self-care (01) ==
LOC: ER 10:48
DX: R10.32 Left lower quadrant pain (principal); K80.20 Calculus of gallbladder without cholecystitis without obstruction; I10 Essential (primary) hypertension; K57.30 Diverticulosis of large intestine without perforation or abscess without bleeding; K76.0 Fatty (change of) liver, not elsewhere classified; Z95.810 Presence of automatic (implantable) cardiac defibrillator
CPT/HCPCS: 36415; 74177; 80053; 81001; 83690; 85025; 99284; J1885; J7030; Q9967

== ENCOUNTER 2022-07-14 16:31 | Emergency (ER) | payer OTHER ==
[~2022-07-14] VITALS: Ht 165.1 cm; Wt 105.7 kg
[~2022-07-14 16:31] MED LIST changes: +DICYCLOMINE HCL10 MG PO; -IOPAMIDOL 370 MG/ML 200 ML INFUS..BTL INJ ONE; +ONDANSETRON ODT4 MG PO; -SODIUM CHLORIDE 0.9% 50ML 50 ML ONE
[2022-07-14] MEDS ORDERED: ONDANSETRON HCL INJ 2MG/ML 2ML 2 MG/ML VIAL IV STA (18:26)
[2022-07-14] MEDS ORDERED: FENTANYL CITRATE/PF 100MCG/2 ML INJ IV ONE (18:45)
[2022-07-14 19:08] LABS: BASOPHILS # (AUTO) 0.1 (0.0-0.1); EOSINOPHILS # (AUTO) 0.1 (0.0-0.4); HEMATOCRIT 36.5 % (34.2-44.1); HEMOGLOBIN 11.7 g/dL (12.0-16.0); LYMPHOCYTES # (AUTO) 1.8 (1.0-3.2); LYMPHOCYTES % 25.1 % (18.0-39.1); MEAN CORPUSCULAR HEMOGLOBIN 29.7 pg (28-32); MEAN CORPUSCULAR HGB CONC 32.1 g/dL (31-35); MEAN CORPUSCULAR VOLUME 92.6 fL (81-99); MONOCYTES # (AUTO) 0.5 (0.2-0.8); MONOCYTES % 7.6 % (4.4-11.3); NEUTROPHILS # (AUTO) 4.5 (2.1-6.9); PLATELET COUNT 218 x10e3/uL (140-360); RED BLOOD COUNT 3.94 x10e6/uL (3.6-5.1); RED CELL DISTRIBUTION WIDTH 12.9 % (11.7-14.4)
[2022-07-14 19:09] LABS: ALBUMIN 3.7 g/dL (3.5-5.0); ALBUMIN/GLOBULIN RATIO 1.1 (0.8-2.0); ANION GAP 14.8 mmol/L (8-16); CALCIUM 8.8 mg/dL (8.4-10.2); CREATININE, SERUM 0.85 mg/dL (0.57-1.11); POTASSIUM 3.8 mmol/L (3.5-5.1)
[2022-07-14 19:26] LABS: CLARITY,URINE CLEAR (CLEAR); COLOR,URINE YELLOW (YELLOW); LEUKOCYTE ESTERASE ,URINE NEGATIVE (NEGATIVE); NITRITE,URINE NEGATIVE (NEGATIVE)
[2022-07-14 19:27] LABS: KETONES,URINE NEGATIVE (NEGATIVE); PROTEIN,URINE DIPSTICK NEGATIVE (NEGATIVE); URINE UROBILINOGEN 0.2 mg/dL (0.2 - 1)
[2022-07-14] MEDS ORDERED: IOPAMIDOL 370 MG/ML 100 ML INFUS..BTL INJ ONE (19:32)
[2022-07-14 19:40] LABS: WBC,URINE (MAN) 0-5 /HPF (0-5)
[2022-07-14 19:41] LABS: BACTERIA,URINE FEW /HPF; EPITHELIAL CELLS,URINE MODERATE /LPF; MUCUS,URINE FEW (RARE)
[2022-07-14] MEDS ORDERED: BACTRIM DS TAB1 EACH PO (21:08)
[2022-07-14] MEDS ORDERED: PANTOPRAZOLE SO40 MG PO (21:08)
[2022-07-14] MEDS ORDERED: DICYCLOMINE HCL20 MG PO (21:08)
[2022-07-14 21:20] VITALS: BP 154/89
== END 2022-07-14 21:34 | disposition home or self-care (01) ==
LOC: ER 16:40
DX: R10.13 Epigastric pain (principal); R31.9 Hematuria, unspecified; K29.70 Gastritis, unspecified, without bleeding; K80.20 Calculus of gallbladder without cholecystitis without obstruction; K57.30 Diverticulosis of large intestine without perforation or abscess without bleeding; K42.9 Umbilical hernia without obstruction or gangrene; I10 Essential (primary) hypertension; G89.29 Other chronic pain; Z95.810 Presence of automatic (implantable) cardiac defibrillator; R94.31 Abnormal electrocardiogram [ECG] [EKG]
CPT/HCPCS: 36415; 74177; 80053; 81001; 82550; 82553; 83690; 84484; 85025; 93005; 99284; C9113; J2405; J3010; Q9967

== ENCOUNTER → 2022-08-29 | Day surgery (SDC) | payer OTHER ==
[2022-08-21 15:40] LABS: BASOPHILS # (AUTO) 0.1 (0.0-0.1); BASOPHILS % 0.8 % (0.0-1.0); EOSINOPHILS # (AUTO) 0.2 (0.0-0.4); EOSINOPHILS % 2.6 % (0.0-6.0); HEMOGLOBIN 11.2 g/dL (12.0-16.0); LYMPHOCYTES # (AUTO) 2.1 (1.0-3.2); LYMPHOCYTES % 33.1 % (18.0-39.1); MEAN CORPUSCULAR HEMOGLOBIN 28.9 pg (28-32); MEAN CORPUSCULAR VOLUME 90.4 fL (81-99); MONOCYTES # (AUTO) 0.5 (0.2-0.8); MONOCYTES % 7.6 % (4.4-11.3); NEUTROPHILS # (AUTO) 3.5 (2.1-6.9); NEUTROPHILS % 55.6 % (38.7-80.0); PLATELET COUNT 216 x10e3/uL (140-360); RED BLOOD COUNT 3.87 x10e6/uL (3.6-5.1); RED CELL DISTRIBUTION WIDTH 12.7 % (11.7-14.4)
[~2022-08-29] MED LIST changes: +AMLODIPINE BESYL5 MG PO; +ASPIRIN81 MG PO; +BACTRIM DS TAB1 EACH PO; +DICYCLOMINE HCL20 MG PO; +LACTATED RINGER'S 1,000 ML ONE; +LIDOCAINE HCL 2% LOCAL INJ 5 ML SDV VIAL INJ ONE; +LINZESS290 MCG PO; +METOPROLOL SUCC50 MG PO; +OMEPRAZOLE40 MG PO; +PANTOPRAZOLE SO40 MG PO; +PROPOFOL IV EMULSION 10 MG/ML 20 ML VIAL ONE; +ZETIA10 MG PO
[2022-08-29 07:25] VITALS: BP 133/76; PULSE 67; RESP 14; O2SAT 97
== END | disposition home or self-care (01) ==
LOC: OR 05:24
PROVIDERS: ATTEND Internal Medicine Gastroenterology
DX: K29.50 Unspecified chronic gastritis without bleeding (principal); K80.20 Calculus of gallbladder without cholecystitis without obstruction; K44.9 Diaphragmatic hernia without obstruction or gangrene; I10 Essential (primary) hypertension; I49.9 Cardiac arrhythmia, unspecified; E78.5 Hyperlipidemia, unspecified; D30.02 Benign neoplasm of left kidney; D30.01 Benign neoplasm of right kidney; Z01.812 Encounter for preprocedural laboratory examination; Z79.82 Long term (current) use of aspirin; Z79.899 Other long term (current) drug therapy; Z95.0 Presence of cardiac pacemaker
CPT/HCPCS: 36415; 43239; 85025; 88305; 88342; J2001; J2704; J7121; 88304; 88312